=== PATIENT | male | born 1995 | race Caucasian/White ===

== ENCOUNTER 2016-05-26 00:21 | Emergency (ER) | payer MEDICAID ==
[2016-05-26] MEDS ORDERED: POLYMYXIN B SULFATE/TMP OPH SOLN (10 ML/ER DISP) OU PRN (02:18)
--- NOTE | 2016-05-26 02:18 | ER Document Report ---
ED General - General Chief Complaint: Drainage from Eye Stated Complaint: EYE IRRITATION Notes: Patient is a 27 year old male without past medical history, does not wear contacts who presents with 5 days of bilateral conjunctival irritation, yellowish discharge from both eyes as well as eye irritation. Does describe irritation to the eyes as a constant, itching irritation. Nothing improves or worsens his symptoms. Patient is here with their significant other who has the same symptoms. No history of similar symptoms in the past. The patient has not seen a primary care doctor regarding today's concerns. TRAVEL OUTSIDE OF THE [place] IN LAST 30 DAYS: No - Related Data Allergies/Adverse Reactions: Cat/Feline Product Derivatives * [Cat/Feline Product Derivatives] Allergy ( Verified 08/09/14 23:56) Penicillins Allergy (Verified 08/09/14 23:56) Past Medical History - General Information source: Patient - Social History Smoking Status: Never Smoker Frequency of alcohol use: None Drug Abuse: None Lives with: Spouse/Significant other Family History: Arthritis, CAD, DM, Hyperlipidemia, Hypertension, Malignancy, Thyroid Disfunction Pulmonary Medical History: Reports: Hx Asthma Neurological Medical History: Reports: Hx Migraine Renal/ Medical History: Denies: Hx Peritoneal Dialysis Musculoskeltal Medical History: Reports Hx Musculoskeletal Deformity, Reports Hx Musculoskeletal Trauma Psychiatric Medical History: Reports: Hx Attention Deficit Hyperactivity Disorder, Hx Depression Traumatic Medical History: Reports: Hx Fractures - left hand and 5th finger, Hx Traumatic Brain Injury Past Surgical History: Reports: Hx Adenoidectomy, Hx Tonsillectomy - Immunizations Immunizations up to date: Yes Hx Diphtheria, Pertussis, Tetanus Vaccination: Yes - 10/26/13 Review of Systems - Review of Systems Notes: Constitutional: Negative for fever. HENT: Negative for sore throat. Eyes: Positive for bilateral eye irritation Cardiovascular: Negative for chest pain. Respiratory: Negative for shortness of breath. Gastrointestinal: Negative for abdominal pain, vomiting or diarrhea. Genitourinary: Negative for dysuria. Musculoskeletal: Negative for back pain. Skin: Negative for rash. Neurological: Negative for headaches, weakness or numbness. 10 point ROS negative except as marked above and in HPI. Physical Exam - Vital signs Vitals: Temp Pulse Resp BP Pulse Ox 98.5 F 102 H 16 158/87 H 97 05/26/16 00:38 05/26/16 00:38 05/26/16 00:38 05/26/16 00:38 05/26/16 00:38 Interpretation: Normal Notes: PHYSICAL EXAMINATION: GENERAL: Well-appearing, well-nourished and in no acute distress. HEAD: Atraumatic, normocephalic. EYES: Bilateral mild conjunctival injection, yellow discharge in the lacrimal region bilaterally. Extra motions are intact. No proptosis. No periorbital edema or erythema. ENT: Moist mucous membranes. NECK: Normal range of motion LUNGS: Normal work of breathing HEART: 2+ radial pulses bilaterally EXTREMITIES: no pitting or edema. No cyanosis. NEUROLOGICAL: No focal neurological deficits. Moves all extremities spontaneously and on command. PSYCH: Normal mood, normal affect. SKIN: Warm, Dry, normal turgor, no rashes or lesions noted. Course - Re-evaluation Re-evalutation: 05/26/16 02:17 Patient presents with symptoms most consistent with a viral conjunctivitis. Bilateral eye involvement without purulent drainage. Patient does also have associated upper respiratory symptoms again suggesting a viral etiology of the conjunctivitis. Patient is otherwise very well in appearance, no acute distress , vitals within normal limits. I have discussed with the patient at the bedside for likely viral nature of this presentation but given duration of symptoms will empirically start polytrim. At this time will discharge with return precautions and follow-up recommendations. Verbal discharge instructions given a the bedside and opportunity for questions given. Medication warnings reviewed. Patient is in agreement with this plan and has verbalized understanding of return precautions and the need for primary care follow-up in the next 24-72 hours. - Vital Signs Vital signs: Temp Pulse Resp BP Pulse Ox 98.5 F 102 H 16 158/87 H 97 05/26/16 00:38 05/26/16 00:38 05/26/16 00:38 05/26/16 00:38 05/26/16 00:38 Discharge - Discharge Clinical Impression: Conjunctivitis Qualifiers: Conjunctivitis type: acute Acute conjunctivitis type: unspecified Laterality: bilateral Qualified Code(s): H10.33 - Unspecified acute conjunctivitis, bilateral Condition: Good Disposition: HOME, SELF-CARE Additional Instructions: Your eye redness is likely due to a viral infection and should spontaneously resolve in the next 3-4 days. You have been sent home with a prescription for eyedrops which you can start if your symptoms worsen or fail to improve in that time. Please return immediately if you begin to have worsening discomfort in the eyes, you notice spreading redness around the eye, you have changes in vision, or you have any other symptoms that are worrisome to you.
[2016-05-26 02:49] VITALS: BP 136/78
== END 2016-05-26 02:47 | disposition home or self-care (01) ==
LOC: ER 00:21
DX: H10.33 Unspecified acute conjunctivitis, bilateral (principal); H57.8 Other specified disorders of eye and adnexa; Z88.0 Allergy status to penicillin
CPT/HCPCS: 99282; J3490

== ENCOUNTER 2018-11-04 22:18 | Emergency (ER) | payer SELFPAY ==
[2018-11-04 22:56] VITALS: BP 113/67
[2018-11-04] MEDS ORDERED: CEPHALEXIN 500 MG CAPSULE PO ONE (23:03)
[2018-11-04] MEDS ORDERED: LIDOCAINE 4% TRANSPARENT DRESSING 5 GM KIT TP ONE (23:03)
[2018-11-04] MEDS ORDERED: SULFAMETHOXAZOLE/TRIMETHOPRIM 800-160 MG TABLET PO ONE (23:03)
--- NOTE | 2018-11-04 23:06 | ER Document Report ---
ED Medical Screen (RME) - General Chief Complaint: Facial Swelling Stated Complaint: INSECT BITE Time Seen by Provider: 11/04/18 22:59 Notes: 23-year-old male with chief complaint of possible insect bite to the forehead, over the past couple of days this has worsened causing pain, redness, and some swelling away from the area. He states he has had the same pain in other locations on the body. He denies fever/chills, pain medications, or any past medical history. Denies IV drugs. Denies any other complaints. TRAVEL OUTSIDE OF THE [place] IN LAST 30 DAYS: No - Related Data Allergies/Adverse Reactions: Cat/Feline Product Derivatives * [Cat/Feline Product Derivatives] Allergy (Verified 08/09/14 23:56) Penicillins Allergy (Verified 08/09/14 23:56) Past Medical History - Social History Chew tobacco use (# tins/day): No Frequency of alcohol use: None Drug Abuse: None Pulmonary Medical History: Reports: Hx Asthma Neurological Medical History: Reports: Hx Migraine Renal/ Medical History: Denies: Hx Peritoneal Dialysis Musculoskeltal Medical History: Reports Hx Musculoskeletal Deformity, Reports Hx Musculoskeletal Trauma Psychiatric Medical History: Reports: Hx Attention Deficit Hyperactivity Disorder, Hx Depression Traumatic Medical History: Reports: Hx Fractures - left hand and 5th finger, Hx Traumatic Brain Injury Past Surgical History: Reports: Hx Adenoidectomy, Hx Tonsillectomy - Immunizations Immunizations up to date: Yes Hx Diphtheria, Pertussis, Tetanus Vaccination: Yes - 10/26/13 Physical Exam - Vital signs Vitals: Temp Pulse Resp BP 98.0 F 88 20 113/67 11/04/18 22:54 11/04/18 22:54 11/04/18 22:54 11/04/18 22:54 - Skin Skin irregularity: other - Probable early abscess with surrounding cellulitis noted over the forehead Course - Re-evaluation Re-evalutation: The area is slightly indurated and appears possibly fluctuant. I discussed I&D, patient at first declines but then agrees to this when I offered LMX and the plan only to use a needle. This will be the plan. Starting on Bactrim and Keflex. There is some surrounding cellulitis. No fever, no past medical history reported, no concerning findings otherwise. I have greeted and performed a rapid initial assessment of this patient. A comprehensive ED assessment and evaluation of the patient, analysis of test results and completion of the medical decision making process will be conducted by additional ED providers. - Vital Signs Vital signs: Temp Pulse Resp BP Pulse Ox 98.0 F 88 20 113/67 11/04/18 22:54 11/04/18 22:54 11/04/18 22:54 11/04/18 22:54
--- NOTE | 2018-11-05 00:44 | ER Document Report ---
HPI - HPI Patient complains to provider of: Abscess Time Seen by Provider: 11/04/18 22:59 Pain Level: 5 Context: E NOTE: 23-year-old male with chief complaint of possible insect bite to the forehead, over the past couple of days this has worsened causing pain, redness, and some swelling away from the area. He states he has had the same pain in other locations on the body. He denies fever/chills, pain medications, or any past medical history. Denies IV drugs. Denies any other complaints. My HPI: Patient has already spoken with E provider. They have discussed doing a attempted needle aspiration of the potential abscess of the patient's forehead. Patient is adamantly declining any sort of incision and drainage of his abscess at this time. Patient is Sriram been treated with initial dose of Keflex and Bactrim. Numbing cream Sriram applied to patient's forehead. - REPRODUCTIVE Reproductive: DENIES: : Past Medical History - General Information source: Patient - Social History Smoking Status: Current Every Day Smoker Chew tobacco use (# tins/day): No Frequency of alcohol use: None Drug Abuse: None Family History: Arthritis, CAD, DM, Hyperlipidemia, Hypertension, Malignancy, Thyroid Disfunction Patient has suicidal ideation: No Patient has homicidal ideation: No Pulmonary Medical History: Reports: Hx Asthma Neurological Medical History: Reports: Hx Migraine Renal/ Medical History: Denies: Hx Peritoneal Dialysis Musculoskeletal Medical History: Reports Hx Musculoskeletal Deformity, Reports Hx Musculoskeletal Trauma Psychiatric Medical History: Reports: Hx Attention Deficit Hyperactivity Disorder, Hx Depression Traumatic Medical History: Reports: Hx Fractures - left hand and 5th finger, Hx Traumatic Brain Injury Past Surgical History: Reports: Hx Adenoidectomy, Hx Tonsillectomy - Immunizations Immunizations up to date: Yes Hx Diphtheria, Pertussis, Tetanus Vaccination: Yes - 10/26/13 Vertical Provider Document - CONSTITUTIONAL Agree With Documented VS: Yes Notes: GENERAL: Alert, interacts well. No acute distress. HEAD: Normocephalic, approximate 1 cm x 1 cm area of fluctuance noted centrally to the patient's right forehead with approximately 3 cm x 3 cm of erythematous c ellulitic skin surrounding. EYES: Pupils equal, round, and reactive to light. Extraocular movements intact. ENT: Oral mucosa moist, tongue midline. Nares patent. NECK: Full range of motion. Supple. Trachea midline. LUNGS: Clear to auscultation bilaterally, no wheezes, rales, or rhonchi. No respiratory distress. HEART: Regular rate and rhythm. No murmur ABDOMEN: Soft, non-tender. Non-distended. Bowel sounds present in all 4 quadrants. EXTREMITIES: Moves all 4 extremities spontaneously. No edema, normal radial and dorsalis pedis pulses bilaterally. No cyanosis. BACK: no cervical, thoracic, lumbar midline tenderness. No saddle anesthesia, normal distal neurovascular exam. NEUROLOGICAL: Alert and oriented x3. Normal speech. cranial nerves II through XII grossly intact. PSYCH: Normal affect, normal mood. SKIN: Warm, dry, normal turgor. - INFECTION CONTROL TRAVEL OUTSIDE OF THE [place] IN LAST 30 DAYS: No Course - Re-evaluation Re-evalutation: Attempted needle aspiration, only a small amount of purulent drainage noted. Discussed with patient importance in taking antibiotics. Also discussed if redness, swelling has increased despite antibiotic use he should return to the emergency room. Patient again wishes to decline any further incision and draining procedures. Patient stable for discharge. - Vital Signs Vital signs: Temp Pulse Resp BP Pulse Ox 98.0 F 88 20 113/67 11/04/18 22:54 11/04/18 22:54 11/04/18 22:54 11/04/18 22:54 Discharge - Discharge Clinical Impression: Abscess Cellulitis Qualifiers: Site of cellulitis: face Qualified Code(s): L03.211 - Cellulitis of face Condition: Stable Disposition: HOME, SELF-CARE Instructions: Abscess ([facility]), Cephalexin ([facility]), Post Incision and Drainage, Trimethoprim-Sulfa ([facility]) Additional Instructions: As we discussed you have been seen and treated in the emergency department for your facial abscess. Please take antibiotics as prescribed. Please also make sure you follow-up with your primary care provider. Should the redness, swelling increase in the next 48 hours despite antibiotic use please return to the emergency room. Prescriptions: Sulfamethoxazole/Trimethoprim [Bactrim Ds Tablet] 1 each PO BID 7 Days #14 tablet Cephalexin Monohydrate [Keflex 500 mg Capsule] 500 mg PO BID 7 Days #14 capsule Forms: Return to Work
== END 2018-11-05 01:13 | disposition home or self-care (01) ==
LOC: ER 22:18
DX: L02.01 Cutaneous abscess of face (principal); L03.211 Cellulitis of face; F17.200 Nicotine dependence, unspecified, uncomplicated
CPT/HCPCS: 99282; 10160; J3490

== ENCOUNTER 2018-11-05 16:32 | Emergency (ER) | payer SELFPAY ==
[2018-11-05 16:40] VITALS: BP 136/75
--- NOTE | 2018-11-05 17:01 | ER Document Report ---
HPI - HPI Patient complains to provider of: possible abscess Time Seen by Provider: 11/05/18 16:51 Onset: Other - sunday Onset/Duration: Sudden Pain Level: Denies Context: 23-year-old male presents emergency department with insect bite to the center of his forehead. Reports it happened Sunday when he was working. He presented to the emergency department yesterday where they thought maybe had an abscess and he tolerated the roof the insect bite no pustule was obtained. Patient left before you abscess pain to his prescription because he said he was tired of waiting. He returns today because he has some swelling to the bridge of his nose size. No erythema no warmth to the area. No pustule to the site. He denies fever vomiting diarrhea. Denies history of MRSA. Associated Symptoms: None Exacerbated by: Denies Relieved by: Denies Similar symptoms previously: Yes Recently seen / treated by doctor: Yes - REPRODUCTIVE Reproductive: DENIES: : Past Medical History - General Information source: Patient - Social History Smoking Status: Unknown if Ever Smoked Cigarette use (# per day): Yes Frequency of alcohol use: None Drug Abuse: None Family History: Arthritis, CAD, DM, Hyperlipidemia, Hypertension, Malignancy, Thyroid Disfunction Patient has suicidal ideation: No Patient has homicidal ideation: No Pulmonary Medical History: Reports: Hx Asthma Neurological Medical History: Reports: Hx Migraine Renal/ Medical History: Denies: Hx Peritoneal Dialysis Musculoskeletal Medical History: Reports Hx Musculoskeletal Deformity, Reports Hx Musculoskeletal Trauma Psychiatric Medical History: Reports: Hx Attention Deficit Hyperactivity Disorder, Hx Depression Traumatic Medical History: Reports: Hx Fractures - left hand and 5th finger, Hx Traumatic Brain Injury Past Surgical History: Reports: Hx Adenoidectomy, Hx Tonsillectomy - Immunizations Immunizations up to date: Yes Hx Diphtheria, Pertussis, Tetanus Vaccination: Yes - 10/26/13 Vertical Provider Document - CONSTITUTIONAL Agree With Documented VS: Yes Exam Limitations: No Limitations General Appearance: WD/WN, No Apparent Distress - INFECTION CONTROL TRAVEL OUTSIDE OF THE [place] IN LAST 30 DAYS: No - HEENT HEENT: Atraumatic, Normocephalic - NECK Neck: Supple - RESPIRATORY Respiratory: No Respiratory Distress - CARDIOVASCULAR Cardiovascular: Regular Rate - MUSCULOSKELETAL/EXTREMETIES Musculoskeletal/Extremeties: SMOOTH BOLANOS - NEURO Level of Consciousness: Awake, Alert, Appropriate Motor/Sensory: No Motor Deficit - DERM Integumentary: Warm, Dry Adult Front & Back Diagram: 1 - Small insect bite to the center of his forehead no pustule noted small amount of erythema noted no warmth no induration no fluctuance. very slight Swelling across the bridge of his nose to bilateral inner eyes. Course - Re-evaluation Re-evalutation: 11/05/18 17:41 This 23-year-old male presents to the emergency department with his mom for insect bite to the center of his forehead possibly abscess. He was evaluated and treated for cellulitis in the emergency department yesterday but he left without his prescriptions because he was tired of waiting. He denies fever vomiting diarrhea. He reports they attempted to obtain pus out of the site yesterday by using a needle. No pustule was obtained. He denies pain or pustule today. He reports his little bit swollen across the bridge of his nose and across his eyes so he returned today. The insect bite does not have a pustule. No induration no fluctuance. Slight swelling across the bridge of his nose and in her eyes. We will treat patient with Septra. He was instructed on signs and symptoms of a pustule of an abscess in the instructed to return here for treatment. He verbalized understanding to all instructions. His mother verbalized understanding also, Dictation of this chart was performed using voice recognition software; therefore, there may be some unintended grammatical errors. - Vital Signs Vital signs: Temp Pulse Resp BP Pulse Ox 98.1 F 86 18 136/75 H 97 11/05/18 16:39 11/05/18 16:39 11/05/18 16:39 11/05/18 16:39 11/05/18 16:39 Discharge - Discharge Clinical Impression: Insect bite of forehead Qualifiers: Encounter type: subsequent encounter Qualified Code(s): S00.86XD - Insect bite (nonvenomous) of other part of head, subsequent encounter Cellulitis Qualifiers: Site of cellulitis: face Qualified Code(s): L03.211 - Cellulitis of face Condition: Stable Disposition: HOME, SELF-CARE Instructions: Cellulitis ([facility]), Insect Bites ([facility]), Trimethoprim-Sulfa ([facility]) Additional Instructions: *You have been treated for insect bite to your forehead, cellulitis *Take medication as prescribed *Monitor the site for signs of increasing infection such as increasing pain, redness, swelling, warmth *Keep the area clean *Follow up with a primary care provider within 5 days or return to the emergency department for worsening symptoms *Return to ED for signs of increasing infection, worsening condition, changes, needs Monitor your blood pressure. Your blood pressure was elevated today. This may be because you were anxious, in pain or because you need medication. It is important to follow up with your primary care provider for full evaluation. Prescriptions: Sulfamethoxazole/Trimethoprim [Bactrim Ds Tablet] 1 each PO BID #20 tablet Forms: Elevated Blood Pressure
== END 2018-11-05 17:09 | disposition home or self-care (01) ==
LOC: ER 16:32
DX: S00.86XA Insect bite (nonvenomous) of other part of head, initial encounter (principal); L03.211 Cellulitis of face; W57.XXXA Bitten or stung by nonvenomous insect and other nonvenomous arthropods, initial encounter; Z72.0 Tobacco use; J45.909 Unspecified asthma, uncomplicated

== ENCOUNTER 2019-08-07 05:40 | Emergency (ER) | payer SELFPAY ==
--- NOTE | 2019-08-07 06:51 | ER Document Report ---
ED General - General Chief Complaint: Overdose Stated Complaint: DRUG ABUSE Time Seen by Provider: 08/07/19 06:07 TRAVEL OUTSIDE OF THE [place] IN LAST 30 DAYS: No - HPI Notes: Chief complaint: Opiate abuse/overdose HPI: 24-year-old male with longstanding use of IV opiates was transported here via EMS after overdosing himself on fentanyl this morning. Patient was found unresponsive in bathroom by fianc. EMS administered Narcan and patient responded immediately. He is remained alert since arrival here and states that he has not previously been through detox but would be interested in assistance getting into detox at this time. He admits that he also has used methamphetamine. He denies abuse of alcohol. Patient denies any suicidal ideation or auditory or visual hallucinations. He says he has had long-term problems with "anger issues" but denies any homicidal ideation at this time. Denies known covert exposure. Denies travel outside the area. Patient is currently living with his fiance. 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 No service. Patient denies any other significant medical history. He is known to be allergic to penicillin. He takes no regular medications. - Related Data Allergies/Adverse Reactions: Cat/Feline Product Derivatives * [Cat/Feline Product Derivatives] Allergy (Verified 08/09/14 23:56) Penicillins Allergy (Verified 08/09/14 23:56) Past Medical History - General Information source: Patient, Emergency Med Personnel, [facility] Records - Social History Smoking Status: Current Every Day Smoker Frequency of alcohol use: None Drug Abuse: Heroin, Methamphetamine Lives with: Spouse/Significant other Family History: Arthritis, CAD, DM, Hyperlipidemia, Hypertension, Malignancy, Thyroid Disfunction Patient has homicidal ideation: No - Past Medical History Cardiac Medical History: Reports: None Pulmonary Medical History: Reports: Hx Asthma Neurological Medical History: Reports: Hx Migraine Renal/ Medical History: Denies: Hx Peritoneal Dialysis Musculoskeletal Medical History: Reports Hx Musculoskeletal Deformity, Reports Hx Musculoskeletal Trauma Psychiatric Medical History: Reports: Hx Attention Deficit Hyperactivity Disorder, Hx Depression Traumatic Medical History: Reports: Hx Fractures - left hand and 5th finger, Hx Traumatic Brain Injury Past Surgical History: Reports: Hx Adenoidectomy, Hx Tonsillectomy - Immunizations Immunizations up to date: Yes Hx Diphtheria, Pertussis, Tetanus Vaccination: Yes - 10/26/13 Review of Systems - Review of Systems Notes: Constitutional: Negative for fever. HENT: Negative for sore throat. Eyes: Negative for visual changes. Cardiovascular: Negative for chest pain. Respiratory: Negative for shortness of breath. Gastrointestinal: Negative for abdominal pain, vomiting or diarrhea. Genitourinary: Negative for dysuria. Musculoskeletal: Negative for back pain. Skin: Negative for rash. Neurological: Negative for headaches, weakness or numbness. 10 point ROS negative except as marked above and in HPI. Physical Exam - Vital signs Vitals: Temp 99.2 F 08/07/19 05:40 - Notes Notes: GENERAL: Well-developed well-nourished appearing in no acute distress. SKIN: Good turgor no rashes. HEAD: Normocephalic atraumatic. EYES: PERRLA. EOMI. Conjunctivae and sclerae clear. EARS: CANALS AND TMS CLEAR. NOSE: CLEAR. MOUTH: Moist mucosa. Good dentition. No stridor or edema. No drooling. NECK: Supple. No masses or thyromegaly. No adenopathy. Carotids 2+ without bruits. No JVD. BACK: Symmetrical without tenderness. CHEST: Respirations unlabored. Breath sounds clear and symmetrical. HEART: Regular rhythm. No murmur gallop or rub. ABDOMEN: Soft nontender without masses, organomegaly or rebound. Bowel sounds normally active. No bruits. GENITALIA: Deferred. EXTREMITIES: No edema. No calf tenderness. Cap refill less than 1.5 seconds. Dorsalis pedis and posterior tibial pulses 3+ and symmetrical. NEUROLOGICAL: GCS 15. Alert and oriented x3. Normal gait. Mildly slurred speech. Cranial nerves II through XII intact. Sensorimotor and cerebellar normal. Normal tone. PSYCHIATRIC: Appropriate affect. Course - Re-evaluation Re-evalutation: 08/07/19 15:07 Patient remains medically stable at this time. Behavioral medicine evaluation is pending regarding potential referral for inpatient detox. - Vital Signs Vital signs: Temp Pulse Resp BP Pulse Ox 98.3 F 9 L 124/74 99 08/07/19 08:00 08/07/19 13:01 08/07/19 13:01 08/07/19 13:01 - Laboratory Result Diagrams: 08/07/19 05:51 08/07/19 05:51 Laboratory results interpreted by me: 08/07/19 08/07/1920 05:51 05:51 07:59 RBC 4.17 L Hgb 12.5 L Hct 36.5 L Lymph % (Auto) 9.0 L Seg Neutrophils % 83.3 H Sodium 135.5 L Glucose 123 H Urine Protein 100 H Urine Ketones TRACE H Urine Urobilinogen 2.0 H Acetaminophen < 10 L - EKG Interpretation by Me Additional EKG results interpreted by me: 08/07/19 06:52 Twelve-lead EKG from 0547 hrs. reviewed contemporaneously by me demonstrating a sinus tachycardia with a rate of 102 and normal MI QRS and QT intervals with a normal axis of +72 degrees. There are no acute ST/T wave changes present. There is no old EKG for direct comparison. Indication for current study: Tachycardia and opiate overdose. Discharge - Discharge Clinical Impression: Polysubstance abuse Disposition: PSYCH HOSP/UNIT
[2019-08-07 07:06] LABS: ABSOLUTE LYMPHOCYTES (AUTO) 0.8 10^3/uL (0.5-4.7); ABSOLUTE MONOCYTES (AUTO) 0.6 10^3/uL (0.1-1.4); ABSOLUTE NEUT (AUTO) 7.1 10^3/uL (1.7-8.2); BASOPHILS % (AUTO) 0.3 % (0-2); EOSINOPHILS % (AUTO) 0.1 % (0-6); HEMATOCRIT 36.5 % (37.9-51.0); HEMOGLOBIN 12.5 g/dL (13.5-17.0); MEAN CORPUSCULAR HGB CONC 34.2 g/dL (32.0-36.0); MEAN CORPUSCULAR VOLUME 88 fl (80-97); MONOCYTES % (AUTO) 7.3 % (3-13); PLATELET COUNT 319 10^3/uL (150-450); RED BLOOD COUNT 4.17 10^6/uL (4.35-5.55); RED CELL DISTRIBUTION WIDTH 12.5 % (11.5-14.0); SEGMENTED NEUTROPHILS % (AUTO) 83.3 % (42-78); TOTAL CELLS COUNTED % (AUTO) 100 %; WHITE BLOOD COUNT 8.5 10^3/uL (4.0-10.5)
--- NOTE | 2019-08-07 07:23 | RADIOLOGY REPORT (SQ) ---
EXAM DESCRIPTION: XR CHEST 1 VIEW COMPLETED DATE/TME: 08/07/2019 06:51 CLINICAL HISTORY: 24 years, Male, Fever COMPARISON: None. NUMBER OF VIEWS: One TECHNIQUE: AP view of the chest LIMITATIONS: None. FINDINGS: The lungs are clear. The heart is normal in size. There is no pneumothorax or pleural effusion. The bones are unremarkable. IMPRESSION: No acute cardiopulmonary abnormality copyright 2010 [email or web address]- All Rights Reserved
[2019-08-07 07:33] LABS: ALBUMIN 4.1 g/dL (3.5-5.0); ALKALINE PHOSPHATASE 69 U/L (38-126); ANION GAP 8 (5-19); ASPARTATE AMINO TRANSFERASE 19 U/L (17-59); BLOOD UREA NITROGEN 14 mg/dL (7-20); CALCIUM 9.5 mg/dL (8.4-10.2); CARBON DIOXIDE 26 mmol/L (22-30); CHLORIDE 102 mmol/L (98-107); GLUCOSE 123 mg/dL (75-110); POTASSIUM 4.1 mmol/L (3.6-5.0); TOTAL PROTEIN 6.9 g/dL (6.3-8.2)
[2019-08-07 07:36] LABS: ACETAMINOPHEN < 10 ug/mL (10-30); ALCOHOL < 10 mg/dL (NONE DETECTED)
[2019-08-07 08:42] LABS: APPEARANCE,URINE CLEAR; BILIRUBIN,URINE NEGATIVE (NEGATIVE); CALCIUM OXALATE CRYSTALS,URINE RARE /HPF; COLOR,URINE YELLOW; GLUCOSE, URINE NEGATIVE (NEGATIVE); KETONES,URINE TRACE mg/dL (NEGATIVE); PROTEIN,URINE 100 mg/dL (NEGATIVE); URINE SPECIFIC GRAVITY 1.029
[2019-08-07 09:06] LABS: URINE BARBITURATES SCREEN NEGATIVE; URINE BENZODIAZEPINES SCREEN NEGATIVE; URINE COCAINE SCREEN NEGATIVE; URINE MARIJUANA (THC) SCREEN NEGATIVE; URINE METHADONE SCREEN NEGATIVE; URINE PHENCYCLIDINE SCREEN NEGATIVE
--- NOTE | 2019-08-07 16:49 | PSYCHOLOGICAL NOTE ---
Psych Note - Psych Note Date seen by psych provider: 08/07/19 Time seen by psych provider: 14:00 Psych Note: Reason for Consult: Detox Patient arrived to [facility] ED after accidental overdose. Patient reports that he passed out while shooting up. He confirms he has been abusing substances for the last 2 years. He states he is interested in detox however states he needs medical detox. Clinician explained that at this time the medical team is reporting he is medically cleared and is not meeting their criteria for medical admission. It was explained the behavioral health team is able to facilitate with a secured bed at the local detox facility; patient respectfully declined. Patient stated he might as well just detox at home if it is not a medical detox. He continued to report that he knows of a facility in [place] where it is a free 7-day medical detox. He reports he has that phone number at home and will contact them for a bed. Patient is alert and orientated to person, place, time and circumstance. Mood is overall euthymic with congruent affect. Patient denies suicidal and homicidal ideation. Delusions are absent behaviors congruent with an intact reality based presentation i.e. organized and linear thought process. Eye contact was well maintained. Conversational speech is within normal rate, tone and prosody. Intellectual abilities appear to be within the average range. Attention and concentration are currently good. Insight, judgment, impulse control are fair. Clinical presentation: Accidental overdose Polysubstance abuse Impression\plan: Patient is cleared from acute psychiatric services. Patient reports he would like medical detox and declines assistance for a detox bed at [facility]. Patient is highly encouraged to follow through with his plan for detox and then substance abuse treatment. Patient will be provided resource sheet of area facilities if he changes his mind. Dr. Rouse was consulted in the care management of this patient; attending physicians in agreement with recommendations and disposition.
[2019-08-07 17:49] VITALS: BP 123/69
--- NOTE | 2019-08-08 22:15 | EKG REPORT ---
SEVERITY:- BORDERLINE ECG - SINUS TACHYCARDIA BORDERLINE Q WAVES IN INFERIOR LEADS INFERIOR Q WAVES, PROBABLY NORMAL VARIATION : Confirmed by: Tiffanie Rocha MD 08-Aug-2019 22:14:07
== END 2019-08-07 17:44 | disposition home or self-care (01) ==
LOC: ER 05:40
DX: F19.10 Other psychoactive substance abuse, uncomplicated (principal); F17.200 Nicotine dependence, unspecified, uncomplicated; Z03.818 Encounter for observation for suspected exposure to other biological agents ruled out; Z88.0 Allergy status to penicillin
CPT/HCPCS: 93005; 99285; 36415; 80307 ×3; 85025; 87635 ×2; 80053; 81001; 71045; 93010; C9803